=== PATIENT | male | born 1965 | race Caucasian/White ===

== ENCOUNTER 2019-10-24 16:45 | Inpatient (IN) | payer BC ==
[~2019-10-24] VITALS: Ht 175.3 cm; Wt 107.8 kg
[2019-10-24] MEDS ORDERED: ONDANSETRON 2MG/ML, 2ML IVPush ONE (17:00)
[2019-10-24] MEDS ORDERED: HEPARIN 25,000 UNITS/500ML PMX 500 ML ONE (17:12)
[2019-10-24] MEDS ORDERED: MORPHINE SULFATE 4 MG/ML, 1ML ONE ×3 (17:13→21:34)
[2019-10-24] MEDS ORDERED: ONDANSETRON 2MG/ML, 2ML ONE (17:13)
[2019-10-24] MEDS: MORPHINE SULFATE 4 MG/ML, 1ML IVPush PRN ×2 (17:21→19:33)
--- NOTE | 2019-10-24 17:34 | NUR ---
PT FROM [place]. HAS CO OF SOB AND CHEST PAIN FOR PAST 3 DAYS. WENT TO URGENT CARE TODAY AND WAS SENT HERE. DIAGNOSED W BILAT PE. PT IS PLEASANT, A&oX4, NOT IN RESP DISTRESS. CENTRAL STERILE TECH APPLIED. VS STABLE. LABS DRAWN. HX OF HTN.
[2019-10-24 17:35] LABS: BASOPHILS # (AUTO) 0.04 x10^3/uL (0-0.1); BASOPHILS % (AUTO) 0 % (0-1); EOSINOPHILS # (AUTO) 0.19 x10^3/uL (0-0.4); EOSINOPHILS % (AUTO) 2 % (1-7); LYMPHOCYTES # (AUTO) 1.86 x10^3/uL (1-3.4); LYMPHOCYTES % (AUTO) 21 % (22-44); MD NO; MEAN CORPUSCULAR HEMOGLOBIN 32.4 pg (27.5-34.5); MEAN CORPUSCULAR HGB CONC 33.7 g/dL (33.2-36.2); MEAN CORPUSCULAR VOLUME 96.1 fL (81-97); MEAN PLATELET VOLUME 7.8 fL (7.4-10.4); MONOCYTES # (AUTO) 0.85 x10^3/uL (0.2-0.8); MONOCYTES % (AUTO) 9 % (2-9); NEUTROPHILS # (AUTO) 6.13 x10^3/uL (1.8-6.8); NEUTROPHILS % (AUTO) 68 % (42-75); PLATELET COUNT 188 x10^3/uL (130-400); RED BLOOD COUNT 4.87 x10^6/uL (4.38-5.82); RED CELL DISTRIBUTION WIDTH 13.1 % (9.4-14.8)
[2019-10-24] MEDS ORDERED: LISI-167 PO (17:36)
[2019-10-24 17:48] LABS: ALBUMIN 3.3 g/dL (3.4-5.0); ANION GAP 7 mmol/L (5-15); CALCIUM 8.2 mg/dL (8.5-10.1); CHLORIDE 106 mmol/L (98-107)
[2019-10-24] MEDS ORDERED: HEPARIN 5,000 UNITS/ML, 1ML ONE ×2 (17:50→18:11)
[2019-10-24 17:52] LABS: TROPONIN I < 0.015 ng/mL (0.000-0.045)
[2019-10-24] MEDS ORDERED: HEPARIN 5,000 UNITS/ML, 1ML IV ONE (18:00)
[2019-10-24] MEDS ORDERED: HEPARIN 25,000 UNITS/500ML PMX 500 ML IV PRN ×2 (18:00→23:45)
[2019-10-24] MEDS ORDERED: HEPARIN 5,000 UNITS/ML, 1ML IV PRN ×2 (18:00→23:45)
--- NOTE | 2019-10-24 18:17 | NUR ---
HEP GTT STARTED AT 900 U/HR PT STATES PAIN IS MANAGEABLE
--- NOTE | 2019-10-24 19:34 | NUR ---
MEDICATED FOR PIAN. PT RATES PAIN 8/10 IN CHEST. VS STABLE
--- NOTE | 2019-10-24 19:50 | NUR ---
PT GIVEN MEAL TRAY. ATE %100. NO NEEDS AT THIS TIME
--- NOTE | 2019-10-24 19:58 | NUR ---
[facility]ERT ORDERED FOR 0015 10/25/19
--- NOTE | 2019-10-24 20:43 | NUR ---
PT INQUIRING ABOUT WAIT TIME TO GO UPSTAIRS. RN INFORMED THAT THERE IS A HOLD AND UNKNOWN ADMIT TIME TO FLOOR. PT UNDERSTANDING. PAIN OK. HOSPITAL BED ORDERED.
--- NOTE | 2019-10-24 20:47 | NUR ---
REPORT TO LILI
--- NOTE | 2019-10-24 20:55 | NUR ---
REPORT RECEIVED AND CARE ASSUMED. CALL PLACED TO DR HARRISON S/T NO ADMIT ORDERS NOTED. DR HARRISON STATES HE WILL REVIEW CHART AND TO F/U IN 30 MINUTES. PT NSR ON MONITOR. HEPARIN INFUSING VIA PUMP. PT REQUESTING PAIN MEDS--AWAITING FOR ORDERS.
--- NOTE | 2019-10-24 21:25 | NUR ---
REPORT CALLED TO FLOOR. SECOND CALL PLACED TO DR HARRISON--NO ORDERS RECEIVED. DISCUSSED PT WITH ERP ON DUTY. ORDER FOR PAIN MEDS RECEIVED. PT TO BE TRANSFERRED TO FLOOR AFTER MEDS.
[2019-10-24 22:00] VITALS: BP 134/82
[2019-10-24] MEDS ORDERED: MORPHINE SULFATE 4 MG/ML, 1ML IVPush PRN (22:00)
[2019-10-24] MEDS: TEMAZEPAM 15 MG CAPSULE PO PRN (23:46)
[2019-10-24] MEDS: HYDROcodone/APAP 5/325 TABLET PO PRN (23:47)
[2019-10-25] MEDS ORDERED: LIDODERM 5% PATCH TD PRN
[2019-10-25] MEDS ORDERED: DOCUSATE 100 MG CAPSULE PO PRN
[2019-10-25] MEDS ORDERED: NICOTINE 14MG/24 HR PATCH.TD24 TD PRN
[2019-10-25] MEDS ORDERED: ONDANSETRON ODT 4 MG PO PRN
[2019-10-25] MEDS ORDERED: HEPARIN 25,000 UNITS/500ML PMX 500 ML IV PRN (01:30)
[2019-10-25] MEDS: HEPARIN 5,000 UNITS/ML, 1ML IV PRN ×3 (01:32→15:45)
[2019-10-25 01:35] VITALS: BP 149/91
[2019-10-25] MEDS: ACETAMINOPHEN 325 MG TABLET PO PRN ×2 (04:27→08:37)
[2019-10-25] MEDS: HYDROcodone/APAP 5/325 TABLET PO PRN (04:27)
[2019-10-25 06:48] VITALS: BP 124/80
[2019-10-25 07:40] LABS: BASOPHILS # (AUTO) 0.03 x10^3/uL (0-0.1); BASOPHILS % (AUTO) 0 % (0-1); EOSINOPHILS # (AUTO) 0.08 x10^3/uL (0-0.4); EOSINOPHILS % (AUTO) 1 % (1-7); LYMPHOCYTES # (AUTO) 1.19 x10^3/uL (1-3.4); LYMPHOCYTES % (AUTO) 14 % (22-44); MD NO; MEAN CORPUSCULAR HEMOGLOBIN 32.1 pg (27.5-34.5); MEAN CORPUSCULAR HGB CONC 33.7 g/dL (33.2-36.2); MEAN PLATELET VOLUME 7.6 fL (7.4-10.4); MONOCYTES # (AUTO) 0.89 x10^3/uL (0.2-0.8); MONOCYTES % (AUTO) 11 % (2-9); NEUTROPHILS # (AUTO) 6.33 x10^3/uL (1.8-6.8); NEUTROPHILS % (AUTO) 74 % (42-75); PLATELET COUNT 181 x10^3/uL (130-400); RED BLOOD COUNT 4.97 x10^6/uL (4.38-5.82); RED CELL DISTRIBUTION WIDTH 13.1 % (9.4-14.8)
[2019-10-25 08:00] LABS: ANION GAP 6 mmol/L (5-15); CALCIUM 8.2 mg/dL (8.5-10.1); CHLORIDE 107 mmol/L (98-107)
[2019-10-25] MEDS: LISINOPRIL 10 MG TABLET PO SCH ×2 (08:25→21:00)
[2019-10-25 12:49] VITALS: BP 117/77
[2019-10-25 20:01] VITALS: BP 115/69
[2019-10-25] MEDS: APIXABAN 5 MG TABLET PO SCH (21:09)
[2019-10-25] MEDS: TEMAZEPAM 15 MG CAPSULE PO PRN (21:21)
[2019-10-26 01:49] VITALS: BP 149/84
[2019-10-26 06:25] LABS: BASOPHILS # (AUTO) 0.03 x10^3/uL (0-0.1); BASOPHILS % (AUTO) 0 % (0-1); EOSINOPHILS # (AUTO) 0.22 x10^3/uL (0-0.4); EOSINOPHILS % (AUTO) 2 % (1-7); LYMPHOCYTES # (AUTO) 2.17 x10^3/uL (1-3.4); LYMPHOCYTES % (AUTO) 24 % (22-44); MD NO; MEAN CORPUSCULAR HEMOGLOBIN 32.3 pg (27.5-34.5); MEAN CORPUSCULAR HGB CONC 33.4 g/dL (33.2-36.2); MEAN CORPUSCULAR VOLUME 96.9 fL (81-97); MEAN PLATELET VOLUME 8.1 fL (7.4-10.4); MONOCYTES # (AUTO) 0.98 x10^3/uL (0.2-0.8); MONOCYTES % (AUTO) 11 % (2-9); NEUTROPHILS # (AUTO) 5.75 x10^3/uL (1.8-6.8); NEUTROPHILS % (AUTO) 63 % (42-75); PLATELET COUNT 210 x10^3/uL (130-400); RED BLOOD COUNT 5.27 x10^6/uL (4.38-5.82); RED CELL DISTRIBUTION WIDTH 12.9 % (9.4-14.8)
[2019-10-26 06:30] LABS: ANION GAP 6 mmol/L (5-15); CALCIUM 8.7 mg/dL (8.5-10.1); CHLORIDE 106 mmol/L (98-107); CREATININE 0.88 mg/dL (0.7-1.3)
[2019-10-26 08:16] VITALS: BP 129/72
[2019-10-26] MEDS: LISINOPRIL 10 MG TABLET PO SCH (09:08)
[2019-10-26] MEDS: APIXABAN 5 MG TABLET PO SCH (09:09)
[2019-10-26] MEDS ORDERED: APIX5TAB PO (12:12)
== END 2019-10-26 13:31 | disposition home or self-care (01) | DRG 175 ==
LOC: ED 17:34 → EDIP 17:35 → ED 17:46 → 4WST 21:55
PROVIDERS: ADMIT Internal Medicine; ATTEND Family Medicine
DX: I26.99 Other pulmonary embolism without acute cor pulmonale (principal); J96.01 Acute respiratory failure with hypoxia; F17.210 Nicotine dependence, cigarettes, uncomplicated; I10 Essential (primary) hypertension; Z86.718 Personal history of other venous thrombosis and embolism; Z83.3 Family history of diabetes mellitus; Z71.6 Tobacco abuse counseling; Z79.899 Other long term (current) drug therapy
CPT/HCPCS: 36415; 80048; 82040; 83880; 84484; 85025; 85520; 93005; 93306; 96374; 96375; 96376; G0378; J1644; J2405; J2270

== ENCOUNTER → 2019-10-24 | Outpatient (CLI) | payer BC ==
[~2019-10-24] MED LIST: APIX5TAB PO; LISI-167 PO; OMNIPAQUE 350 MG/ML, 100ML BOTTLE ONE
[2019-10-24 15:53] LABS: CREATININE 1.04 mg/dL (0.7-1.3)
== END | disposition home or self-care (01) ==
LOC: RAD 15:08
PROVIDERS: ATTEND Nurse Practitioner Family
DX: J43.8 Other emphysema (principal); J90 Pleural effusion, not elsewhere classified; I26.99 Other pulmonary embolism without acute cor pulmonale; Z90.49 Acquired absence of other specified parts of digestive tract
CPT/HCPCS: 36415; 71275; 82565; Q9967